=== PATIENT | male | born 1995 | race Caucasian/White ===

== ENCOUNTER 2019-08-11 15:28 | Emergency (ER) | payer SELFPAY ==
[~2019-08-11] VITALS: Ht 175.3 cm; Wt 74.8 kg
[2019-08-11 15:53] VITALS: Ht 175.3 cm; Wt 74.8 kg
[2019-08-11 17:07] VITALS: BP 107/77
== END 2019-08-11 17:07 | disposition home or self-care (01) ==
LOC: ED 15:28
DX: R07.89 Other chest pain (principal); R06.00 Dyspnea, unspecified
CPT/HCPCS: Q0092